=== PATIENT | male | born 1970 | race Caucasian/White ===

== ENCOUNTER 2017-07-25 20:21 | Emergency (ER) | payer OTHER ==
[~2017-07-25] VITALS: Ht 172.7 cm; Wt 81.6 kg
--- NOTE | 2017-07-25 20:35 | NUR ---
PT AMBULATORY TO ER BED 12. 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 VSS/RESP EVEN UNLABORED/NAD NOTED/SKIN WARM AND DRY/DENIES N-V-D/AOX4. MD AT BEDSIDE FOR EVAL.
[2017-07-25] MEDS ORDERED: CHLORDIAZEPOXIDE HCL 25 MG CAPSULE ONE (20:57)
[2017-07-25] MEDS: CHLORDIAZEPOXIDE HCL 25 MG CAPSULE PO ONE (20:59)
[2017-07-25 21:04] VITALS: BP 129/69
== END 2017-07-25 21:05 | disposition home or self-care (01) ==
LOC: ER 20:27
DX: F41.9 Anxiety disorder, unspecified (principal); F10.239 Alcohol dependence with withdrawal, unspecified; F17.210 Nicotine dependence, cigarettes, uncomplicated; Z87.442 Personal history of urinary calculi
CPT/HCPCS: 99284; 99406; A4606; Z7610